=== PATIENT | male | born 1955 | race Caucasian/White ===

== ENCOUNTER 2020-01-01 11:27 | Observation (INO) | payer SELFPAY ==
--- NOTE | ~2020-01-01 | US_ITS ---
EXAMINATION:US venous doppler LE LT INDICATION: TECHNIQUE: Multiple grayscale, color flow and Doppler images of the lower extremity deep venous syste ms were obtained and reviewed. COMPARISON: FINDINGS: The common femoral, superficial femoral and popliteal veins demonstrate normal respiratory variation, augmentation and compressibility. Color flow is also seen within the posterior tibial, pe roneal, and profunda veins. There is superficial thrombosis of the greater saphenous vein. IMPRESSION: 1: No lower extremity deep venous thrombosis. 2: Superficial thrombosis left greater saphenous vein. Reviewed, dictated and finalized at location A.
--- NOTE | ~2020-01-01 | XR_ITS ---
XR foot LT min 3V 01/01/2020 11:59 Indication: Left foot redness and swelling Procedure: 4 views left foot Comparison: No prior studies for comparison. Findings: No acute fracture or traumatic malalignment. Lisfranc joint intact. Mild degenerative zimmer es of the first MTP joint with hallux valgus. Mild osteoarthritis of the first IP joint. No focal sof t tissue abnormality. No foreign bodies. Impression: 1: No acute bone or joint abnormality. Reviewed, dictated and finalized at location A. Impression: 1: No acute bone or joint abnormality.
--- NOTE | ~2020-01-01 | US_ITS ---
US arterial ankle brachial ind 01/01/2020 14:10 Indication: Leg pain Procedure: Limited Doppler examination for evaluation of ankle brachial indices Comparison: 03/03/2009 Findings: Right ankle-brachial indices could not be performed due to amputation. No pedal pulses are identified in the left posterior tibial or dorsalis pedis arteries. Impression: 1: Limited study. No identifiable pulses in the left posterior tibial or dorsalis pedis arteries for evaluation of ankle-brachial index. Reviewed, dictated and finalized at location A. Impression: 1: Limited study. No identifiable pulses in the left posterior tibial or dorsal is pedis arteries for evaluation of ankle-brachial index.
[2020-01-01 11:35] VITALS: BP 173/99; PULSE 78; RESP 18; TEMP 36.9; O2SAT 100
[2020-01-01 11:52] LABS: Glucose Point of Care 120 (65-105)
--- NOTE | 2020-01-01 12:14 | ED.GENADULT ---
HPI - General Adult General Chief complaint: Wound/Laceration <ANJUM Gordon Last Filed: 01/01/20 13:56> Stated complaint: foot wound <ANJUM Gordon Last Filed: 01/01/20 13:56> Time Seen by Provider: 01/01/20 11:34 <ANJUM Gordon Last Filed: 01/01/20 13:56> Source: patient <ANJUM Gordon Last Filed: 01/01/20 13:56> Mode of arrival: ambulatory <ANJUM Gordon Last Filed: 01/01/20 13:56> Limitations: no limitations <ANJUM Gordon Last Filed: 01/01/20 13:56> History of Present Illness HPI narrative: Patient is a 64-year-old male who presents to emergency department for evaluation of wound to the left leg with erythema and swelling from the foot up to the distal calf patient notes irritation attributed to the neuropathy saw his primary care for this a month ago who said that the wounds were not present now has eschars along the great toe the midfoot. Patient notes aching pain that is constant and worse with activity. Patient has tried topical creams with no improvement <ANJUM Gordon Last Filed: 01/01/20 13:56> Related Data Home medications: Home Medications Medication Instructions Recorded Confirmed aspirin 81 mg tablet,delayed 81 mg PO DAILY 11/04/19 release atorvastatin 80 mg tablet 80 mg PO DAILY 11/04/19 fenofibrate nanocrystallized 145 145 mg PO DAILY 11/04/19 mg tablet nitroglycerin 0.4 mg sublingual 0.4 mg SUBLINGUAL Q5M PRN 11/04/19 tablet <ANJUM Gordon Last Filed: 01/01/20 13:56> Allergies/adverse reactions: Allergies Allergy/AdvReac Type Severity Reaction Status Date / Time morphine Allergy Mild Rash Verified 11/04/19 08:51 <ANJUM Gordon Last Filed: 01/01/20 13:56> Review of Systems Review of Systems: All systems reviewed & are unremarkable except as noted in HPI and below <ANJUM Gordon Last Filed: 01/01/20 13:56> PMF Past Medical History Medical History: Medical History Atherosclerosis of [place] coronary artery of [place] heart without angina pectoris Benign essential hypertension Benign prostatic hyperplasia with nocturia Nicotine dependence, unspecified, uncomplicated Other hyperlipidemia Peripheral vascular disease Type 2 diabetes mellitus with hyperlipidemia <Samuel Mcgovern PA-C - Last Filed: 01/01/20 13:56> Surgical History Surgical History: Surgical History Amputation of right lower extremity below knee History of surgical removal of testicle <Samuel Mcgovern PA-C - Last Filed: 01/01/20 13:56> Social History Social History: Social History Smoking status: Current every day smoker Alcohol intake: current <Samuel Mcgovern PA-C - Last Filed: 01/01/20 13:56> Exam Narrative: Exam Narrative: GENERAL: Well-appearing, well-nourished, and in no acute distress. HEAD: Normocephalic, atraumatic. EYES: PERRLA and EOMI. ENT: Nares clear, no rhinorrhea or epistaxis. Mucous membranes moist. CHEST: Clear to auscultation. No respiratory distress. No wheezes rales or rhonchi HEART: Regular rate and rhythm. No murmur heard. Normal peripheral pulses. EXTREMITIES: Normal range of motion. No edema. SKIN: Warm, dry, no rash. Redness swelling and tenderness and warmth to touch from the foot up to the mid villalobos with eschars along the left great toe and midfoot NEURO: No focal deficits. Alert and oriented x3. Neurovascularly intact. Capillary refill less than 2 seconds PSYCH: Normal mood and affect. <Samuel Mcgovern PA-C - Last Filed: 01/01/20 13:56> Course Course Emergency Course: Patient without high risk changes in the blood work or imaging will be placed in hospital for wound care consult and evaluation of his wounds
[2020-01-01 12:37] LABS: Basophils Absolute Auto 0.1 K/mm3 (0.0-0.1); Basophils Percent Auto 0.6 % (0.2-1.2); Eosinophils Absolute Auto 0.1 K/mm3 (0-0.3); Eosinophils Percent Auto 1.1 % (0-4.4); Hematocrit 43.5 % (42.0-52.0); Hemoglobin 14.5 g/dL (14.0-18.0); Immature Granulocyte Absolute 0.02 K/mm3 (0.00-0.031); Immature Granulocyte Percent A 0.2 % (0-0.5); Lymphocytes Absolute Auto 1.85 K/mm3 (0.9-3.2); Lymphocytes Percent Auto 18.8 % (18.3-44.2); Mean Corpuscular HGB Conc 33.3 g/dl (32-36); Mean Corpuscular Hemoglobin 31.3 pg (26-34); Mean Corpuscular Volume 93.8 fl (80-100); Mean Platelet Volume 9.8 fl (7.4-10.4); Monocytes Percent Auto 9.8 % (2.6-8.5); Neutrophils Absolute Auto 6.8 K/mm3 (1.3-6.7); Neutrophils Percent Auto 69.5 % (45.5-73.1); Platelet Count Result 462 k/mm3 (150-375); Red Blood Count 4.64 M/mm3 (4.6-6.20); Red Cell Distribution Width 13.4 % (11.5-14.5); White Blood Count 9.9 K/mm3 (4.5-10.0)
[2020-01-01 12:50] LABS: Alanine Aminotransferase 17 U/L (4-50); Albumin Level 4.5 g/dL (3.5-5.1); Alkaline Phosphatase 67 U/L (38-126); Aspartate Amino Transferase 24 U/L (17-59); Bilirubin,Total 0.4 mg/dL (0.2-1.3); Blood Urea Nitrogen 11 mg/dL (9-20); Calcium 9.8 mg/dL (8.4-10.2); Carbon Dioxide 23 mmol/L (22-30); Chloride 103 mmol/L (98-107); Estimated CRCL calculation 137 ml/min; Estimated Glomerular Filt Rate > 60; Glucose 121 mg/dL (75-110); Potassium 4.4 mmol/L (3.4-5.0); Sodium 135 mmol/L (137-145)
[2020-01-01 12:54] LABS: CRP 1.7 mg/dL (<1.0)
[2020-01-01 12:56] LABS: INR 0.9; Prothrombin Time 11.7 Seconds (11.1-14.7)
[2020-01-01 12:57] LABS: Partial Thromboplastin Time 32.4 SECONDS (22.3-36.8)
[2020-01-01] MEDS: ceFAZolin SODIUM 1 GM VIAL IV PUSH (13:52)
[2020-01-01 14:40] VITALS: BP 167/97; PULSE 78; RESP 16; O2SAT 99
--- NOTE | 2020-01-01 15:25 | ADMGEN ---
This patient, Young Washburn, was admitted to 3 Med Surg Room 306-01. Patient/family oriented to hospital policies and general routines including ID bracelet, bed and alarms, visiting hours, pain management, procedures, bathroom and other care routines, personal items, smoking policy, room service/diet, and visiting hours. Valuables list has been completed. Information on how to activate the Rapid Response Team has been discussed. Patient/Family are encouraged to report perceived risks to care and to ask questions if they do not understand what they are told or what they should do.
[2020-01-01 16:00] VITALS: BP 188/83; PULSE 77; RESP 18; TEMP 36.3; O2SAT 100
--- NOTE | 2020-01-01 17:28 | PM.SD ---
Same Day Admit/Disch: HPI History of Present Illness Chief complaint: Left foot wounds. Narrative: Young Washburn is a 64-year-old male with peripheral vascular disease, hypertension, hyperlipidemia, and type 2 diabetes mellitus with peripheral neuropathy who presented to the emergency department earlier this afternoon from his primary care provider's office for evaluation of left foot wounds. He has a longstanding history of vascular disease and has previously undergone femoral-popliteal bypass grafting of bilateral lower extremities, right common iliac artery angioplasty with stent, endarterectomy right superior femoral artery, and subsequent thrombectomy at the level of the right ankle around 1 year thereafter. He was ultimately referred to vascular eap specialist, Dr. Bethel Gamboa, at [facility]. Since that time, patient has had a right swxzq-dia-wwjx amputation and believes he has had several other vascular interventions, of which he cannot recall. In any event, he was last seen by vascular surgeon Dr. Edwards approximately 7 months ago and at that time was told that he did not need to be seen for another year. On November 04, 2019 he was seen by his primary care provider with complaints of left great toe pain, which he initially attributed to gout. Monofilament exam revealed decreased sensation, he was diagnosed with peripheral neuropathy, and started on gabapentin. He continues to have pain, however, that he describes as a constant, burning pain ?like somebody set an iron on it.? Over the last month, he has been experiencing ?squeezing pains? throughout the left foot and unfortunately has started to developed wounds of the left foot that he cannot get to heal despite using several different salves and balms that he has at home. He went back to his primary care provider's office today due to lack of improvement and was directed to the emergency department for treatment of suspected cellulitis. With further questioning, he does admit to decreased sensation, however that was documented in October as detailed above. He also tells me that at times his left foot is ?ice cold? but denies pallor and paresis. [facility] Past Medical History Medical History (Updated 01/01/20 @ 17:55 by Shannon Cortes PA-C) Atherosclerosis of [place] coronary artery of [place] heart without angina pectoris Benign essential hypertension Benign prostatic hyperplasia with nocturia Gout Nicotine dependence, unspecified, uncomplicated Other hyperlipidemia Peripheral vascular disease With history of multiple interventions of bilateral lower extremities, including bilateral fem-pop bypass grafting, angioplasty with stents, thrombectomy, and right wzcid-kfi-kwtk amputation. He sees Dr. Bethel Gamboa, affiliated with [facility] in [place]. Stenosis of right carotid artery Patient notes near total occlusion of the right carotid artery. Type 2 diabetes mellitus Surgical History Surgical History (Updated 01/01/20 @ 18:13 by Shannon Cortes PA-C) Amputation of right lower extremity below knee History of inguinal herniorrhaphy History of surgical removal of testicle At age 16, for unclear reasons. History of vascular surgery As detailed above, he has a history of bilateral fem-pop bypass graft, angioplasty with stent, thrombectomy, and subsequent right buiwu-xhp-rqvu amputation. Family History Family History (Updated 01/01/20 @ 17:45 by Shannon Cortes PA-C) Father Vascular disease Social History Social History (Updated 01/01/20 @ 17:46 by Shannon Cortes PA-C) Social History: Surrogate decision maker: Katia Manuel, sister. Code status: Full code. Smoking packs per day: 1.5 Smoking cigarettes per day: 30.0 Years smoked: 45 Smoking pack-years: 67.50 Smoking status: Current every day smoker Alcohol intake: current Drinks per week: 12 Substance use: never Additional living arrangements comments: Patient li
--- NOTE | 2020-01-01 19:46 | PC.NURSE ---
Pt admitted from ER at 1450. Shannon LARRY at bedside assessing patient at 1500. Notified charge nurse about transferring patient to [place]. Accepting physician Dr. Herring at 1620. Attempted to call report at 1720, placed on hold for 12 plus minutes. Returned call to give report at 1844, due to shift change nurse refused report and states, [facility] will call for report. [facility] BILL from [place] called to receive report at 1923.
--- NOTE | 2020-01-01 20:08 | PC.NURSE ---
[facility] called stating they would be unable to transfer patient to [facility] due to other calls. Called [facility] service to request transfer. [facility] reports ETA 2300.
[2020-01-01 20:26] VITALS: PULSE 85
[2020-01-01] MEDS: METOPROLOL TARTRATE 50 MG TAB 100 MG PO (20:26)
[2020-01-01] MEDS: LACTATED RINGERS 1,000 ML 80 ML IV CONT (20:27)
[2020-01-01] MEDS: HYDROMORPHONE HCL 1 MG/ML INJ 0.5 MG IV PUSH (22:26)
[2020-01-01] MEDS: FAMOTIDINE 20 MG/2 ML VIAL IV PUSH (22:28)
[2020-01-01 22:30] VITALS: BP 178/76; PULSE 65; RESP 18; TEMP 36.3; O2SAT 99
--- NOTE | 2020-01-01 23:26 | PC.NURSE ---
Called [facility] for new ETA at 0616. Advised that they would be here around midnight.
[2020-01-02 01:21] LABS: Glucose Point of Care 99 (65-105)
--- NOTE | 2020-01-28 16:27 | PM.TDS ---
Transfer Discharge Sum: Prov Provider Date of admission: 01/01/20 14:06 Primary care physician: Anabel Farmer MD Admitting clinician: Pavan Mas MD DS: Diagnosis Admitting Diagnosis Admitting Diagnosis: 1. Peripheral vascular disease with ulcerations of the left lower extremity. 2. Cellulitis of the left lower extremity. 3. Hyperlipidemia. 4. Hypertension. 5. Type 2 diabetes mellitus. 6. Peripheral vascular disease. 7. Tobacco abuse. Discharge Diagnosis (1) Peripheral vascular disease of lower extremity with ulceration: Code(s): I73.9 - Peripheral vascular disease, unspecified; L97.909 - Non-pressure chronic ulcer of unspecified part of unspecified lower leg with unspecified severity Status: Acute Assessment and Plan: Long discussion with the patient regarding physical exam findings and imaging studies, most consistent with underlying vascular disease. It would be in his best interest to be evaluated by a vascular surgeon, and as we lack that subspecialty at this facility, transfer was initiated to [facility] in [place]. Patient is hesitant, as he is afraid that he is going to require amputation, however did consent to transfer for evaluation and possible intervention if deemed necessary. Dr. Michael Herring accepts the patient in transfer, and recommends he be NPO at this time. (2) Cellulitis of left lower extremity: Code(s): L03.116 - Cellulitis of left lower limb Status: Acute Assessment and Plan: He has been started on imipenem and vancomycin. (3) Nicotine dependence, unspecified, uncomplicated: Code(s): F17.200 - Nicotine dependence, unspecified, uncomplicated Status: Chronic Assessment and Plan: Smoking cessation is imperative. He does not seem motivated to quit. Declines the need for a nicotine patch. (4) Benign essential hypertension: Code(s): I10 - Essential (primary) hypertension Status: Chronic Assessment and Plan: Blood pressures were reviewed and they are not at goal, ranging in the high 150s to 170 systolic. (5) Type 2 diabetes mellitus: Code(s): E11.9 - Type 2 diabetes mellitus without complications Status: Acute Assessment and Plan: Patient states well controlled on metformin. (6) Hyperlipidemia: Code(s): E78.5 - Hyperlipidemia, unspecified Status: Acute Assessment and Plan: Patient states compliance with statin. (7) Peripheral vascular disease: Code(s): I73.9 - Peripheral vascular disease, unspecified Status: Chronic Assessment and Plan: Plan is as detailed above. Transfer Discharge Sum: Med Medications Active and Home Medications: Home Medications apixaban 5 mg tablet 5 mg PO BID #60 tablet 09/24/19 [Rx Confirmed 01/01/20] aspirin 81 mg tablet,delayed release 81 mg PO DAILY 11/04/19 [History Confirmed 01/01/20] coenzyme Q10 [CoQ-10] 200 mg PO DAILY 01/01/20 [History Confirmed 01/01/20] metoprolol tartrate [Lopressor] 100 mg PO BID 01/01/20 [History Confirmed 01/01/20] metformin 500 mg tablet 500 mg PO BID #180 tablet 01/18/20 [Rx] amlodipine 5 mg tablet 5 mg PO DAILY 01/20/20 [History] atorvastatin 80 mg tablet 80 mg PO DAILY #90 tablet 01/20/20 [Rx Confirmed 01/20/20] clopidogrel 75 mg tablet 75 mg PO DAILY #90 tablet 01/20/20 [Rx Confirmed 01/20/20] fenofibrate nanocrystallized 145 mg tablet 145 mg PO DAILY #90 tablet 01/20/20 [Rx Confirmed 01/20/20] gabapentin 100 mg capsule 100 mg PO BID 01/20/20 [History] losartan 25 mg tablet 25 mg PO DAILY 01/20/20 [History] nitrog
== END 2020-01-02 00:30 | disposition short-term general hospital (02) ==
LOC: ANHED 14:03 → ANH3MEDSUR 14:13
PROVIDERS: Emergency Medicine Emergency Medical Services; Admitting Provider Internal Medicine; Emergency Provider Emergency Medicine; PCP Family Medicine; Visit Provider Internal Medicine
DX: E11.51 Type 2 diabetes mellitus with diabetic peripheral angiopathy without gangrene (principal); L97.929 Non-pressure chronic ulcer of unspecified part of left lower leg with unspecified severity; E11.42 Type 2 diabetes mellitus with diabetic polyneuropathy; E11.69 Type 2 diabetes mellitus with other specified complication; E78.49 Other hyperlipidemia; F17.210 Nicotine dependence, cigarettes, uncomplicated; I25.10 Atherosclerotic heart disease of native coronary artery without angina pectoris; I10 Essential (primary) hypertension; N40.1 Benign prostatic hyperplasia with lower urinary tract symptoms; R35.1 Nocturia; I65.21 Occlusion and stenosis of right carotid artery; Z79.82 Long term (current) use of aspirin; Z79.84 Long term (current) use of oral hypoglycemic drugs; Z79.899 Other long term (current) drug therapy; Z89.511 Acquired absence of right leg below knee; Z95.820 Peripheral vascular angioplasty status with implants and grafts
CPT/HCPCS: 36415; 73630; 80053; 82948; 85025; 85610; 85730; 86140; 93922; 93971; 96365; 96367; 96375; 96376; 99285; A9270; G0378; G0379; J0131; J0690; J1170; J7120

== ENCOUNTER 2020-05-06 13:09 | Outpatient (CLI) | payer MEDICARE, MEDICAID, SELFPAY | END 2020-05-06 13:10 | disposition home or self-care (01) | DX: N28.89 Other specified disorders of kidney and ureter (principal) | CPT/HCPCS: 87077; 87086; 87088; 87186 ==

== ENCOUNTER 2020-08-23 09:00 | Outpatient (RCR) | payer MEDICARE, MEDICAID, SELFPAY ==
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
== END 2020-08-23 13:30 | disposition home or self-care (01) ==
LOC: ANHPT 09:00
PROVIDERS: PCP Family Medicine; Visit Provider Nurse Practitioner Family
DX: Z47.81 Encounter for orthopedic aftercare following surgical amputation (principal); Z89.512 Acquired absence of left leg below knee
CPT/HCPCS: 97110; 97116; 97162; 97163; 97530; 97761